=== PATIENT | male | born 1960 | race Caucasian/White ===

== ENCOUNTER → 2019-04-05 | Outpatient (CLI) | payer OTHER ==
[~2019-04-05] MED LIST: CIPROFLOXACIN500 M1 PO; CITRATE OF MAG296 ML PO; COLACE100 MG PO; FLOMAX0.4 MG; KEFLEX500 MG PO; NOHOMEMEDICATIONS; NORCO 5-325 TA1 EACH; PERCOCET 5-3251 EACH PO
== END ==
LOC: CAT 11:23
DX: Z13.6 Encounter for screening for cardiovascular disorders (principal); E78.00 Pure hypercholesterolemia, unspecified; I25.10 Atherosclerotic heart disease of native coronary artery without angina pectoris